=== PATIENT | female | born 1945 | race Caucasian/White ===

== ENCOUNTER → 2019-08-04 | Outpatient (CLI) | payer MEDICARE ==
[~2019-08-04] MED LIST: ALBU2.5V2 IH; ALBU90AE IH; APIX5TAB PO; BUSP15TA3 PO; CARAL PO; CETI10TA57 PO; FLUT1DIS3 IH; FURO40TA5 PO; GLIP2.5T17 PO; IOHEXOL 350 MG/ML 100ML INFUS..BTL IV ONE; MAGN400C PO; METF-444 PO; METO25TA6 PO; MONT10TA26 PO; OLME20TA22 PO; PANT40TA25 PO; SOTA120T PO; TOLT4CAP PO
== END | disposition home or self-care (01) ==
LOC: EDUNIT# 09:00 → RAH 09:04
PROVIDERS: ATTEND Internal Medicine Cardiovascular Disease
DX: J43.9 Emphysema, unspecified (principal); I49.5 Sick sinus syndrome; I48.0 Paroxysmal atrial fibrillation; J98.11 Atelectasis
CPT/HCPCS: 71275; Q9967